=== PATIENT | female | born 2000 | race Caucasian/White ===

== ENCOUNTER 2022-01-08 03:32 | Emergency (ER) | payer OTHER ==
[~2022-01-08] VITALS: Ht 157.5 cm; Wt 102.3 kg
[~2022-01-08 03:32] MED LIST: IBUP-1506 PO
[2022-01-08] MEDS ORDERED: CIPR7.5D AD (05:00)
[2022-01-08] MEDS ORDERED: IBUP-2070 PO (05:00)
[2022-01-08 05:24] VITALS: BP 138/89
[2022-01-08] MEDS ORDERED: OxyCODONE HCL/ACETAMINOPHEN 5-325 MG TABLET PO ONE (05:30)
== END 2022-01-08 05:27 | disposition home or self-care (01) ==
LOC: EMS 03:32
DX: H60.91 Unspecified otitis externa, right ear (principal); Z86.69 Personal history of other diseases of the nervous system and sense organs
CPT/HCPCS: 99283

== ENCOUNTER 2024-09-14 20:15 | Emergency (ER) | payer OTHER ==
[~2024-09-14] VITALS: Ht 165.1 cm; Wt 129.6 kg
[~2024-09-14 20:15] MED LIST changes: +CIPR7.5D AD; +IBUP-1492 PO
[2024-09-14 20:58] VITALS: BP 136/97; PULSE 106; RESP 18; TEMP 99; O2SAT 98
[2024-09-14 21:48] LABS: APPEARANCE,URINE CLEAR (CLEAR); BILIRUBIN,URINE NEGATIVE (NEGATIVE); COLOR,URINE COLORLESS (YELLOW); GLUCOSE, URINE (UA) NEGATIVE (NEGATIVE); KETONES,URINE NEGATIVE (NEGATIVE); LEUKOCYTE ESTERASE ,URINE NEGATIVE (NEGATIVE); NITRATE,URINE NEGATIVE (NEGATIVE); OCCULT BLOOD,URINE NEGATIVE (NEGATIVE); PROTEIN,URINE NEGATIVE (NEGATIVE); UROBILINOGEN,URINE <=1.0 mg/dL (<=1.0)
[2024-09-15] MEDS: METHOCARBAMOL 500 MG TABLET PO ONE (00:30)
[2024-09-15] MEDS: KETOROLAC TROMETHAMINE 30 MG/ML VIAL IM ONE (00:30)
[2024-09-15] MEDS: ACETAMINOPHEN 500 MG TABLET PO ONE (00:31)
[2024-09-15] MEDS: LIDOCAINE 5% TRANSDERMAL PATCH TD ONE (00:31)
[2024-09-15] MEDS ORDERED: METH-812 PO (01:46)
== END 2024-09-15 01:51 | disposition home or self-care (01) ==
LOC: EMS 20:28
DX: M54.50 Low back pain, unspecified (principal)
CPT/HCPCS: 99284; 81003; 84703; 96372; J1885